=== PATIENT | male | born 1950 | race African-American/Black ===

== ENCOUNTER 2018-03-27 20:27 | Observation (INO) | payer MEDICARE ==
[2018-03-27 20:56] LABS: #Eosinphils 0.1 thou/uL (0.0-0.7); #Lymphocytes 1.7 thou/uL (1.20-3.40); #Monocytes 0.4 thou/uL (0.11-0.59); #Neutrophils 5.1 thou/uL (1.40-6.50); %Basophils 0.2 % (0.0-1.0); %Lymphocytes 23.3 % (21.0-51.0); %Neutrophils 70.5 % (42.0-75.0); Hemoglobin 13.8 g/dL (14.0-18.0); Mean Corpuscular HGB CONC 34.7 g/dL (32.0-36.0); Mean Corpuscular Hemoglobin 34.9 pg (27.0-31.0); Mean Platelet Volume 5.8 fL (7.4-10.4); Platelet Count 202 thou/uL (130-400); RBC Distribution Width 12.8 % (11.5-14.5); Red Blood Cell (RBC) Count 3.96 mill/uL (4.70-6.10); White Blood Cell (WBC) Count 7.3 thou/uL (4.8-10.8)
--- NOTE | 2018-03-27 21:17 | RAD ---
PORTABLE AP CHEST X-RAY 03/27/18 HISTORY: Syncope and collapse with vomiting. FINDINGS: The cardiac silhouette and pulmonary vasculature are within normal limits for the portable technique of the study. The lungs are expanded and clear with calcified granuloma seen in the left mid lung zon e. Mild degenerative changes are noted in the thoracic spine. IMPRESSION: No acute cardiopulmonary process. POS: [facility]
[2018-03-27 21:19] LABS: ALT (SGPT) 13 U/L (8-55); AST (SGOT) 15 U/L (5-34); Albumin 3.8 g/dL (3.4-4.8); Alkaline Phosphatase 59 U/L (40-150); Anion Gap 15 mmol/L (10-20); BUN (Urea Nitrogen) 21 mg/dL (8.4-25.7); CK (CPK) 61 U/L (30-200); Calc. Creatinine Clearance 0 mL/min (70-130); Calcium 8.7 mg/dL (7.8-10.44); Carbon Dioxide 23 mmol/L (23-31); Chloride 111 mmol/L (98-107); Estimated GFR-MDRD 52; Globulin 3.1 g/dL (2.4-3.5); Glucose 81 mg/dL (80-115); Potassium 3.6 mmol/L (3.5-5.1); Protein, Total 6.9 g/dL (5.8-8.1); Sodium 145 mmol/L (136-145)
[2018-03-27 21:21] LABS: Troponin I Less than 0.010 ng/mL (< 0.028)
[2018-03-27 23:06] LABS: Bilirubin Negative (Negative); Blood, Urine Negative (Negative); Clarity CLOUDY (Clear); Glucose, Urine (Dipstick) Negative (Negative); Leukocyte Moderate (Negative); Nitrite Negative (Negative); Protein, Urine (Dipstick) 30 mg/dL (Neg-Trace); Specific Gravity, Urine 1.025 (1.002-1.036); Urobilinogen 0.2 mg/dL (0.2-1.0); pH, Urine 5.5 (5.0-9.0)
[2018-03-27 23:10] LABS: Bacteria/HPF None Seen HPF (None Seen); Pathc Cast-AUWi Flag 3.63 (0-2.49); RBC/HPF 0-3 HPF (0-3)
[2018-03-27 23:18] LABS: Trichomonas/HPF 1+ HPF (None Seen)
[2018-03-28 00:35] LABS: Troponin I 0.011 ng/mL (< 0.028)
[2018-03-28] MEDS ORDERED: Acetaminophen 325 MG TAB PO PRN (00:38)
[2018-03-28] MEDS ORDERED: Ondansetron ODT 4 MG TAB SL PRN (00:38)
[2018-03-28] MEDS ORDERED: HYDROcodone/Acetaminophen 5/325 mg Tablet PO PRN ×2 (00:38)
[2018-03-28] MEDS ORDERED: Ondansetron HCl/PF 4 MG/2 ML Vial IVP PRN ×2 (00:38→10:47)
[2018-03-28 03:36] VITALS: BMI 20.3
[2018-03-28 03:49] LABS: Troponin I Less than 0.010 ng/mL (< 0.028)
[2018-03-28] MEDS ORDERED: Aspirin 325 mg Enteric Coated Tablet PO SCH (09:00)
[2018-03-28] MEDS ORDERED: Ondansetron ODT 4 MG TAB PO PRN (10:47)
[2018-03-28] MEDS ORDERED: Acetaminophen 500 MG TAB PO PRN (10:47)
[2018-03-28] MEDS ORDERED: metroNIDAZOLE 500 MG TAB PO SCH (11:00)
[2018-03-28] MEDS: Sodium Chloride 0.9% 1,000 ML IV SCH ×2 (11:11→21:14)
--- NOTE | 2018-03-28 17:32 | HP ---
DATE OF ADMISSION: 03/28/2018 PRIMARY CARE PROVIDER: GLORIA Waterman at the [facility]. CHIEF COMPLAINT: Passing out. HISTORY OF PRESENT ILLNESS: This is a 67-year-old male who presents to [facility] Emergency Department after a brief syncopal episode while playing dominos. The patient state s he was outside with his friends, had one beer, felt dizzy and was somewhat nauseous and passed out while sitting in a chair. His friends state he was out for a few seconds, coming to with noting vomi t on his shirt. The patient denied any unilateral symptoms, amnesia difficulty with speech, visual d isturbance, chest pain or shortness of breath. The patient states he had a passing out episode appro ximately 6 years prior to this evaluation after sustaining a myocardial infarction. The patient stat es he had chest pain at that time, but ignored the symptoms for several days, eventually passing out and being diagnosed with a myocardial infarction, subsequently undergoing cardiac stent placement. T patient again denied any specific chest pain, shortness of breath, decreased activity level, fever , chills, cough or congestion. The patient does state he smokes up to a half a pack of cigarettes da arley and drinks 1-2 beers per week. The patient denied any sick contact exposures, recent travel hist ory or unilateral leg swelling. The patient states he recently was changed on his cholesterol medica tion, but otherwise has been taking his chronic blood pressure medicines consistently. In the emerge ncy room, the patient underwent general evaluation including chest imaging showing no acute infiltrat e. The patient was noted hypotensive initially with blood pressures in the 80s/50s. The patient rec eived intravenous normal saline x1 liter as well as aspirin 243 mg. The patient was transferred to [facility] observation unit for further evaluation. PAST MEDICAL HISTORY: 1. Hypertension. 2. Coronary artery disease. 3. Tobacco abuse. 4. Hyperlipidemia. 5. History of myocardial infarction in 2011. PAST SURGICAL HISTORY: Status post cardiac stent placement x4. CURRENT MEDICATIONS: 1. Amlodipine 5 mg p.o. daily. 2. Lipitor 40 mg p.o. at bedtime. 3. Lisinopril 40 mg p.o. daily. 4. Enteric-coated aspirin, dose unknown. ALLERGIES: No known drug allergies. FAMILY HISTORY: Reviewed and negative per patient report. SOCIAL HISTORY: The patient resides in [place], [place] living with a cousin. Functional of all activ ities of daily living. Single. Smokes up to half a pack of cigarettes daily. 1-2 beers per week. No illicit drug use. REVIEW OF SYSTEMS: A 10-pound weight loss in the last 2-3 months. The following complete review of systems was negative, unless otherwise mentioned in the HPI or below: Constitutional: Weight loss o r gain, ability to conduct usual activities. Skin: Rash, itching. Eyes: Double vision, pain. ENT /Mouth: Nose bleeding, neck stiffness, pain, tenderness. Cardiovascular: Palpitations, dyspnea on exertion, orthopnea. Respiratory: Shortness of breath, wheezing, cough, hemoptysis, fever or night sweats. Gastrointestinal: Poor appetite, abdominal pain, heartburn, nausea, vomiting, constipation, or diarrhea. Genitourinary: Urgency, frequency, dysuria, nocturia. Musculoskeletal: Pain, swelli ng. Neurologic/Psychiatric: Anxiety, depression. Allergy/Immunologic: Skin rash, bleeding tendenc y. Otherwise negative except as stated per HPI. PHYSICAL EXAMINATION: VITAL SIGNS: Currently, blood pressure 102/58, pulse 68, respiratory rate 20, temperature 97.2 degr ees Fahrenheit, O2 saturation 98% on room air. GENERAL APPEARANCE: This is a 67-year-old male, alert and oriented x3, pleasant, sm iling, in no acute distress. HEENT: Pupils are equal, round and reactive to light and accommodation. Extraocular muscles are int act. No scleral icterus. No conjunctival injection. Nares patent. OP is clear. Teeth in poor rep air. NECK: Supple. No cervical adenopathy, no thyromegaly, no carotid bruits, no JVD appreciated. Cervi baudilio spine with full active and passive range of motion. No meningeal signs appreciated. CHEST: Lungs are clear to auscultation bilaterally. CARDIOVASCULAR: S1, S2 without noted murmur, rub or gallop. ABDOMEN: Rounded, soft, nontender, nondistended. Bowel sounds are positive in all four quadrants. There is no hepatosplenomegaly, no abdominal bruits, no rebound or guarding appreciated. EXTREMITIES: Warm and dry with fair turgor. No clubbing, cyanosis or asymmetric edema appreciated. Pulses are palpable distally at the dorsalis pedis, posterior tibial and popliteal arteries bilatera lly. Capillary refill less than 2 seconds. NEUROLOGIC: Cranial nerves II-XII are grossly intact. No focal or lateralizing signs appreciated. PERTINENT LABORATORY AND X-RAY FINDINGS: Sodium 145, potassium 3.6, chloride 111, CO2 of 23, BUN 21, creatinine 1.36. Estimated GFR 52, glucose 81, calcium 8.7. LFTs within normal limits. Troponin I negative x3. BNP 62. CBC showed a white blood cell count of 7.3, hemoglobin 14, hematocrit 40, MCV 100, platelet count 202,000 with normal differential. Urinalysis showed moderate leukocyte esterase with greater than 50 to too numerous to count WBCs per high powered field, 21-50 hyalin casts. Posi tive Trichomonas species. Portable chest x-ray dated 03/27/2018 by my interpretation shows hyperinfl ation in bilateral lung solares without acute process. EKG dated 03/27/2018 by my interpretation show s sinus mechanism with heart rates in the 70s. Attenuated R waves noted in the precordial leads. No rmal axis. Q-waves noted in the inferior leads. ASSESSMENT AND PLAN: 1. Syncopal episode. The patient will be placed in observation status. Exact etiology unclear; how ever, suspicion is for hypovolemia, hypotension and heat exposure. We will continue intravenous norm al saline after assessment of orthostatic vital signs. Hold all antihypertensive medications. Encou rage increased free water intake orally. Continue telemetry monitoring and rule out arrhythmia. Conchis ck TSH level in the a.m. 2. Dehydration. We will continue intravenous fluids with normal saline at 100 mL per hour. 3. Acute kidney injury. Suspected. Continue IV fluids as outlined previously. Avoid nephrotoxic a gents and contrast media. Hold lisinopril. Repeat creatinine in the a.m. 4. Hypotension. Suspect hypovolemia and iatrogenic. Continue IV fluids as outlined previously. Ho ld all antihypertensive medications. 5. Coronary artery disease. Chronic and stable. Continue aspirin 325 mg daily. Check fasting lipi d profile in the a.m. 6. Trichomonas urethritis. Treat with Flagyl 2 g p.o. x1 dose. 7. Hyperlipidemia. Check fasting lipid profile in the a.m. Continue Lipitor 40 mg p.o. at bedtime. 8. Tobacco use. Offer smoking cessation resources prior to discharge. 9. Prophylaxis. Sequential compression devices while in bed. Pepcid 20 mg p.o. b.i.d. 10. Code status is full. Surrogate medical decision maker is the patient's daughter.
[2018-03-28] MEDS: Famotidine 20 MG TAB PO SCH (20:50)
[2018-03-28] MEDS ORDERED: Atorvastatin Calcium 40 MG TAB PO SCH (21:00)
[2018-03-29 04:47] LABS: Anion Gap 9 mmol/L (10-20); BUN (Urea Nitrogen) 12 mg/dL (8.4-25.7); Calc. Creatinine Clearance 75 mL/min (70-130); Calcium 8.4 mg/dL (7.8-10.44); Carbon Dioxide 24 mmol/L (23-31); Cardiac Risk 2.5 (Less than 4.5); Chloride 110 mmol/L (98-107); Cholesterol 91 mg/dl (< 200 Desired); Estimated GFR-MDRD Greater than 90; Glucose 97 mg/dL (80-115); HDL Cholesterol 36 mg/dL (>60 Neg Risk); LDL Cholesterol, Calculated 46 mg/dL; Potassium 3.9 mmol/L (3.5-5.1); Sodium 139 mmol/L (136-145); Triglycerides 43 mg/dL (Less than 150)
[2018-03-29 04:58] LABS: Eosinophils 2 % (0-10); Hemoglobin 12.6 g/dL (14.0-18.0); Lymphocytes 34 % (21-51); MDiff Complete? YES; Mean Corpuscular HGB CONC 33.5 g/dL (32.0-36.0); Mean Corpuscular Hemoglobin 33.4 pg (27.0-31.0); Mean Corpuscular Volume 99.8 fL (78.0-98.0); Mean Platelet Volume 5.7 fL (7.4-10.4); Monocytes 5 % (0-10); Neutrophil 59 % (42-75); PLT Morphology Comment Appears Adequate; Platelet Count 197 thou/uL (130-400); RBC Distribution Width 12.7 % (11.5-14.5); Red Blood Cell (RBC) Count 3.76 mill/uL (4.70-6.10); White Blood Cell (WBC) Count 5.7 thou/uL (4.8-10.8)
[2018-03-29] MEDS: Sodium Chloride 0.9% 1,000 ML IV SCH (07:20)
[2018-03-29] MEDS: Famotidine 20 MG TAB PO SCH (07:22)
[2018-03-29 08:08] VITALS: TEMP 97.8
[2018-03-29] MEDS ORDERED: Aspirin 325 mg Enteric Coated Tablet PO SCH (09:00)
[2018-03-29 12:05] VITALS: BP 139/81
--- NOTE | 2018-03-29 18:04 | DIS ---
DATE OF ADMISSION: 03/28/2018 DATE OF DISCHARGE: 03/29/2018 DISCHARGE DIAGNOSES: 1. Syncopal episode likely due to dehydration and hypovolemia. 2. Dehydration, resolved. 3. Acute kidney injury, resolved. 4. Hypotension, iatrogenic and secondary to hypovolemia, improved. 5. Coronary artery disease, chronic and stable. 6. Trichomonas urethritis. 7. Hyperlipidemia. 8. Tobacco abuse. CONSULTATIONS: None. PERTINENT LABORATORY AND X-RAY FINDINGS: Creatinine ranged between 0.79 to 1.36. Estimated GFR rang ed between 52 to greater than 90. Total cholesterol 91, triglycerides 43, HDL 36, LDL 46. TSH 1.15. Troponin I negative x3. CBC showed a hemoglobin ranging between 12.6 to 13.8. Urine culture dated 03/27/2018 showed 25,000 to 50,000 colonies of beta-hemolytic streptococcus. Urinalysis is positive for 1+ Trichomonas species. Portable chest x-ray dated 03/27/2018 showed no acute cardiopulmonary p rocess. HOSPITAL COURSE: The patient was observed on the telemetry unit after presenting status post brief s yncopal episode. The patient was noted with hypotension and clinically dehydrated with associated ac [place] kidney injury. The patient received IV fluids throughout the hospital course and was held on his regular antihypertensive regimen. Metabolic workup was essentially unremarkable except for elevated creatinine, as stated previously, improving with IV fluid hydration. The patient was treated for mi ld urethritis with Trichomonas species on screening urinalysis and urine culture showing a low popula tion of beta-hemolytic Streptococcus species. The patient received Flagyl 2 grams x1 dose and transi tioned to Keflex 500 mg b.i.d. to complete a 3-day course after discharge. Overall, the patient jarod ined clinically stable with telemetry monitoring showing sinus mechanism without acute arrhythmia or dysrhythmia. I have examined the patient at the time of discharge and discussed followup instruction s. The patient verbalized understanding and agreement, ready for discharge on 03/29/2018. DISCHARGE MEDICATIONS: 1. Amlodipine 5 mg one tablet p.o. daily. 2. Lipitor 40 mg p.o. at bedtime. 3. Keflex 500 mg p.o. b.i.d. x3 days. 4. Lisinopril 20 mg p.o. daily. FOLLOWUP: The patient will follow up with his primary care provider, Jaky Sullivan at the [facility] within 5-7 days. CONDITION ON DISCHARGE: Stable. ACTIVITY: Ad chelle. DIET: Heart healthy. CODE STATUS: FULL. DISPOSITION: Home, 03/29/2018.
--- NOTE | 2018-04-02 13:25 | EKG ---
Test Reason : Blood Pressure : / mmHG Vent. Rate : 075 BPM Atrial Rate : 075 BPM P-R Int : 154 ms QRS Dur : 082 ms QT Int : 398 ms P-R-T Axes : 068 053 047 degrees QTc Int : 444 ms Normal sinus rhythm Cannot rule out Anterior infarct , age undetermined No STEMI Abnormal ECG Confirmed by LILO DOVER M.D. ([id number]), news copy editor YIN RICHEY ([id number]) on 04/02/2018 1:24:50 PM Referred By: Confirmed By:LILO DOVER M.D.
== END 2018-03-29 12:25 | disposition home or self-care (01) ==
LOC: ERS 20:27 → 2SW 03-28 00:02
PROVIDERS: ADMIT Internal Medicine; ATTEND Internal Medicine
DX: R55 Syncope and collapse (principal); E86.0 Dehydration; N17.9 Acute kidney failure, unspecified; E86.1 Hypovolemia; I95.89 Other hypotension; I25.2 Old myocardial infarction; A59.03 Trichomonal cystitis and urethritis; E78.5 Hyperlipidemia, unspecified; F17.210 Nicotine dependence, cigarettes, uncomplicated; Z79.82 Long term (current) use of aspirin; Z79.899 Other long term (current) drug therapy; Z95.5 Presence of coronary angioplasty implant and graft
CPT/HCPCS: 71045; 80048; 80053; 80061; 82550; 82553; 83880; 84443; 84484 ×2; 85007; 85025; 85027; 87086; 93005; 94760; 96360; 96361 ×2; 99285; 99406; G0378 ×2; 36415; 81003; 81015; A4216

== ENCOUNTER 2019-09-28 13:49 | Observation (INO) | payer MEDICAID, MEDICARE ==
[2019-09-28 14:21] LABS: #Monocytes 0.6 thou/uL (0.11-0.59); #Neutrophils 3.3 thou/uL (1.40-6.50); %Basophils 0.8 % (0.0-1.0); %Eosinophils 0.7 % (0.0-10.0); %Lymphocytes 20.6 % (21.0-51.0); %Neutrophils 66.9 % (42.0-75.0); Hemoglobin 11.9 g/dL (14.0-18.0); Mean Corpuscular HGB CONC 34.2 g/dL (32.0-36.0); Mean Corpuscular Hemoglobin 34.2 pg (27.0-31.0); Mean Platelet Volume 6.3 fL (7.4-10.4); Platelet Count 230 thou/uL (130-400); RBC Distribution Width 13.2 % (11.5-14.5); Red Blood Cell (RBC) Count 3.48 mill/uL (4.70-6.10)
--- NOTE | 2019-09-28 14:42 | RAD ---
Chest 2 views HISTORY: Productive cough. COMPARISON: 03/27/2018. FINDINGS: Cardiac silhouette and pulmonary vasculature are unremarkable. Mediastinum is midline. No c onfluent airspace consolidation, pneumothorax, or pleural fluid. Lungs are slightly hyperinflated with increased retrosternal airspace. Minimal degenerative changes thoracic spine. IMPRESSION: Mild pulmonary hyperinflation. No active cardiopulmonary abnormalities are demonstrated.
[2019-09-28 14:45] LABS: ALT (SGPT) 79 U/L (8-55); AST (SGOT) 46 U/L (5-34); Albumin 3.2 g/dL (3.4-4.8); Alkaline Phosphatase 56 U/L (40-110); Anion Gap 13 mmol/L (10-20); BUN (Urea Nitrogen) 9 mg/dL (8.4-25.7); Bilirubin, Total 0.6 mg/dL (0.2-1.2); Calc. Creatinine Clearance 0 mL/min (70-130); Carbon Dioxide 27 mmol/L (23-31); Chloride 105 mmol/L (98-107); Estimated GFR-MDRD Greater than 90; Globulin 2.7 g/dL (2.4-3.5); Glucose 105 mg/dL (80-115); Potassium 3.2 mmol/L (3.5-5.1); Protein, Total 5.9 g/dL (5.8-8.1); Sodium 142 mmol/L (136-145)
[2019-09-28] MEDS ORDERED: Albuterol Sulfate 2.5 mg/0.5 ml Neb ONE ×2 (14:49→15:21)
[2019-09-28] MEDS ORDERED: predniSONE 20 MG TAB ONE (15:03)
--- NOTE | 2019-09-28 16:18 | PDOC.FPRHP ---
- History of Present Illness Chief Complaint: SOB with exertion History of Present Illness: 68YOM with a PMH significant for CAD s/p stent placement, COPD, HTN & HLD who presented to the ED with a CC of progressively worsening SOB with exertion over the last few days. Patient reports he was in his usual state of health until ~3 weeks ago when he started having similar symptoms & was admitted to the hospital in [place], [place] where he was diagnosed with a COPD exacerbation. States the symptoms returned "a couple of days ago" so he decided to come to the ED for evaluation. Reports a persistent cough productive of green sputum. Denies any hemoptysis, fever/chills, N/V/D or recent sick contacts. Denies any unintentional weight loss but does reports decreased PO intake. Did not get his flu shot this year. ED Course: Duonebs x2 & IV steroids - Allergies/Adverse Reactions Allergies Allergy/AdvReac Type Severity Reaction Status Date / Time No Known Allergies Allergy Verified 03/28/18 02:55 - Home Medications Medication Instructions Recorded Confirmed Type Amlodipine [Norvasc] 5 mg PO DAILY 03/28/18 09/28/19 History Lisinopril 20 mg PO DAILY #0 03/29/18 09/28/19 Rx - History PMHx: CAD s/p stent placement x4, HTN, HLD, COPD (no formal diagnosis) PSHx: Stent placement in 2010 FHx: Brother: from [place] in 1993 at age <50 Social: Former smoker, quit ~1 month ago. 50 pack year smoking history. Nothing to drink in a few months. No drug use. Lives in a house with his cousin and has HH stop by 1x/week. - Review of Systems General: reports: weight/appetite/sleep changes. denies: fever/chills Respiratory: reports: cough, shortness of breath, exercise intolerance Cardiovascular: denies: chest pain, orthopnea Gastrointestinal: denies: nausea, vomiting, diarrhea, abdominal pain Skin: denies: rashes, itching Neurological: denies: numbness, weakness - Vital signs BP: [115/74] HR: [107] RR: [22] Tmax: [100.2F] Pox: [99]% on [RA] Wt: [58.97kg ] - Physical Exam Constitutional: NAD, awake, alert and oriented, well developed HEENT: normocephalic and atraumatic, grossly normal vision, grossly normal hearing, MMM, other (poor dentition) Neck: supple, FROM Heart: normal S1/S2, no murmurs/rubs/gallops, pulses present, no edema, other ( tachycardic) Lungs: no retractions, other (diffuse end-expiratory wheezing noted throughout w / prolonged expiratory phase) Abdomen: soft, non-tender, bowel sounds present Musculoskeletal: normal structure, ROM grossly normal Neurological: no focal deficit, CN II-XII intact (grossly) Skin: no rash/lesions, no jaundice Heme/Lymphatic: no unusual bruising or bleeding, no purpura, no petechia, no LAD Psychiatric: normal mood and affect, good judgment and insight, intact recent and remote memory FMR H&P: Results - Labs Result Diagrams: 09/28/19 14:13 09/28/19 14:13 Lab results: WBC 5.0 thou/uL (4.8-10.8) 09/28/19 14:13 Hgb 11.9 g/dL (14.0-18.0) L 09/28/19 14:13 Hct 34.9 % (42.0-52.0) L 09/28/19 14:13 MCV 100.0 fL (78.0-98.0) H 09/28/19 14:13 Plt Count 230 thou/uL (130-400) 09/28/19 14:13 Neutrophils % 66.9 % (42.0-75.0) 09/28/19 14:13 Sodium 142 mmol/L (136-145) 09/28/19 14:13 Potassium 3.2 mmol/L (3.5-5.1) L 09/28/19 14:13 Chloride 105 mmol/L (98-107) 09/28/19 14:13 Carbon Dioxide 27 mmol/L (23-31) 09/28/19 14:13 BUN 9 mg/dL (8.4-25.7) 09/28/19 14:13 Creatinine 0.80 mg/dL (0.7-1.3) 09/28/19 14:13 Glucose 105 mg/dL (80-115) 09/28/19 14:13 Calcium 8.0 mg/dL (7.8-10.44) 09/28/19 14:13 Total Bilirubin 0.6 mg/dL (0.2-1.2) 09/28/19 14:13 AST 46 U/L (5-34) H 09/28/19 14:13 ALT 79 U/L (8-55) H 09/28/19 14:13 Alkaline Phosphatase 56 U/L (40-110) 09/28/19 14:13 Serum Total Protein 5.9 g/dL (5.8-8.1) 09/28/19 14:13 Albumin 3.2 g/dL (3.4-4.8) L 09/28/19 14:13 - Radiology Interpretation Chest x-ray Status: report reviewed by me (Mild pulmonary hyperinflation; no acute cardiopulmonary process) FMR H&P: A/P - Problem List (1) Acute exacerbation of chronic obstructive pulmonary disease Current Visit: Yes Status: Acute Code(s): J44.1 - CHRONIC OBSTRUCTIVE PULMONARY DISEASE W (ACUTE) EXACERBATION (2) Hypokalemia Current Visit: Yes Status: Acute Code(s): E87.6 - HYPOKALEMIA (3) HLD (hyperlipidemia) Current Visit: Yes Status: Acute Code(s): E78.5 - HYPERLIPIDEMIA, UNSPECIFIED (4) HTN (hypertension) Current Visit: Yes Status: Acute Code(s): I10 - ESSENTIAL (PRIMARY) HYPERTENSION (5) Macrocytic anemia Current Visit: Yes Status: Acute Code(s): D53.9 - NUTRITIONAL ANEMIA, UNSPECIFIED - Plan Patient is a 68M with PMHx of COPD, HTN, HLD that is admitted for: #Acute on chronic COPD exacerbation -s/p 2 rounds duonebs and 60mg prednisone in ED -CXR: mild pulmonary hyperinflation without acute cardiopulmonary process, no infiltrates -sputum cultures -will continue 40mg PO prednisone qd -will treat with rocephin and azithromycin -supplemental O2 to keep O2 sats >88% -scheduled duonebs q6h with albuterol q2h prn -procal pending #Hypokalemia -will replete with 40mg po KCl -will continue to monitor and replete as necessary #Macrocytic Anemia -B12, folate, and iron studies pending -will continue to follow #HTN -continue home meds #HLD -continue home meds DVT ppx: lovenox Diet: HH Dispo: medical obs for duonebs, abx, steroids, and respiratory monitoring Code: Full PCP: OOT FMR H&P: Upper Level - Pertinent history 68YOM with a PMH significant for CAD s/p stent placement, COPD, HTN & HLD who presented to the ED with a CC of progressively worsening SOB with exertion over the last few days. Reports he was in his usual state of health until ~3 weeks ago when he started having similar symptoms. Was admitted to the hospital in [place], [place] at that time for a COPD exacerbation & stayed for 5 days. States the symptoms returned "a couple of days ago" so he came to the ED for evaluation. Reports a persistent cough productive of green sputum. Denies any hemoptysis, fever/chills, N/V/D or recent sick contacts. Denies any unintentional weight loss but does reports decreased PO intake. Did not get his flu shot this year. See environmental health and safety intern note for more details of PMH. - Pertinent findings Labs/Imaging: WBC: 5.0 K: 3.2 CXR: hyperinflation but no infiltrates or effusions Gen: no fever, chills, or sweats; + decreased appetite Neuro: no numbness/tingling, no weakness Eyes: no visual changes ENT: no sore throat, no runny nose Resp: + cough & SOB Card: denies chest pain, no orthopnea GI: no N/V/D, no abdominal pain : no dysuria, no hematuria MSK: no myalgias, no joint pain/stiffness Heme: no easy bruising/bleeding, no blood thinners Skin: no rash, no erythema Vitals: T:100.2F R: 20 BP: 120/80 P:80 Sat:99% on RA Wt: 58.9 kg PHYSICAL EXAMINATION: General: NAD, alert and oriented x3 HEENT: normal sclera, oropharynx without erythema or exudate; poor dentition Neck: Supple. Full ROM. Heart/Cardiovascular System: RRR, Cap refill < 3 seconds, no rub, no murmur, no edema Lungs/Respiratory System: No increased work of breathing. Room air. Diffuse expiratory wheezing heard throughout with prolonged expiratory phase Abdomen/Gastro-Intestinal System: soft w/ no abdominal tenderness, normal bowel sounds; mild distension Extremities: Warm extremities. No cyanosis or edema. Neuro: No gross deficits appreciated. CN 2-12 grossly intact Psychiatry: Awake, Alert and cooperative with exam Skin: No lesions, rashes, or ulcers Musculoskeletal: Full ROM - Plan Date/Time: 09/28/19 2449 I, Yun De Leon, have evaluated this patient and agree with findings/plan as outlined by environmental health and safety intern resident. Pertinent changes/additions are listed here. A/P: #Acute on chronic COPD exacerbation -CXR negative for infiltrate & flu swab pending. -Will start on Duonebs WANG Q6H & Q2Hr albuterol with supplemental O2 PRN to maintain sats at 92%. -Will start on azithromycin & rocephin & transition to PO steroids to be continued for at least a 5 day course. -Needs outpatient pulm follow-up & testing for formal diagnosis & will start on WANG QD maintenance therapy to prevent such frequent exacerbations. #Hypokalemia -Will replace PO now & recheck in the AM. #Macrocytic anemia -Will check B12 & folate levels. #Transaminitis: - Mildly elevated LFTs. Could be 2/2 NAFLD or possible chronic EtOH use. Warrants an outpatient workup. #HTN -Will resume home meds once reconciled. #HLD -Home meds once reconciled. CAD s/p stent placement: -Home meds once reconciled. ABx: Azithromycin & Rocephin (09/28) Fluids: SL VTE PPX: Lovenox GI PPX: None Code status: FULL CODE Dispo: Admit to medical floor for close observation overnight. Anticipated LOS < 48hrs pending clinical course. Addendum - Attending - Attending Attestation Date/Time: 09/28/19 5088 I personally evaluated the patient and discussed the management with Drs. Carvajal/ I agree with the History, Examination, Assessment and Plan documented above with any addition or exceptions noted below.68 yo AA male with hx CAD recent admit with new DX COPD exacerbation with 50 pack years tobacco use. Patient with marked wheezing throughout lung solares low grade temp productive cough agree with empirical antibiotics attempt obtain sputum for C&S gram stain , nebulizer rx and course steroids. Patient confirms full code status.
[2019-09-28] MEDS ORDERED: Albuterol Sulfate 2.5 mg/3 ml Neb NEB PRN (16:41)
[2019-09-28] MEDS ORDERED: Calcium Carbonate 500 MG ChewTAB PO PRN (16:43)
[2019-09-28] MEDS ORDERED: Acetaminophen 325 MG TAB PO PRN (16:43)
[2019-09-28] MEDS ORDERED: Ondansetron ODT 4 MG TAB PO PRN (16:43)
[2019-09-28] MEDS ORDERED: Potassium Chloride 20 MEQ TAB PO SCH (17:45)
[2019-09-28 18:07] VITALS: BMI 20.8
[2019-09-28] MEDS ORDERED: Azithromycin 500 MG in Sodium Chloride 0.9% 250 ML 250 ML IVPB SCH (19:00)
[2019-09-28] MEDS ORDERED: cefTRIAXone\\ROCEPHIN 1 GM in Sodium Chloride 0.9% 100 ML IVPB SCH (20:00)
[2019-09-29 04:36] LABS: #Lymphocytes 0.7 thou/uL (1.20-3.40); #Monocytes 0.4 thou/uL (0.11-0.59); #Neutrophils 3.7 thou/uL (1.40-6.50); %Basophils 0.3 % (0.0-1.0); %Eosinophils 0.1 % (0.0-10.0); %Lymphocytes 14.2 % (21.0-51.0); %Monocytes 8.5 % (0.0-10.0); %Neutrophils 76.9 % (42.0-75.0); Hemoglobin 10.7 g/dL (14.0-18.0); Mean Corpuscular HGB CONC 32.7 g/dL (32.0-36.0); Mean Corpuscular Hemoglobin 32.5 pg (27.0-31.0); Mean Corpuscular Volume 99.4 fL (78.0-98.0); Mean Platelet Volume 6.7 fL (7.4-10.4); Platelet Count 241 thou/uL (130-400); RBC Distribution Width 13.1 % (11.5-14.5); White Blood Cell (WBC) Count 4.8 thou/uL (4.8-10.8)
[2019-09-29 04:59] LABS: Anion Gap 13 mmol/L (10-20); BUN (Urea Nitrogen) 10 mg/dL (8.4-25.7); Calc. Creatinine Clearance 71 mL/min (70-130); Calcium 8.8 mg/dL (7.8-10.44); Carbon Dioxide 27 mmol/L (23-31); Chloride 105 mmol/L (98-107); Estimated GFR-MDRD Greater than 90; Glucose 227 mg/dL (80-115); Iron 46 ug/dL (65-175); Iron Binding Capacity, Total 145 mcg/dL (261-462); Potassium 4.1 mmol/L (3.5-5.1); Sodium 141 mmol/L (136-145); Transferrin, Serum 116 mg/dL (163-344)
--- NOTE | 2019-09-29 05:49 | PDOC.FM ---
- Subjective Subjective: Patient doing well. Reports that his breathing has improved. Discussed that Nieves is on his home meds; patient states that he hasn't had the opportunity to pick it up from the pharmacy yet - Objective Vital Signs & Weight: Vital Signs (12 hours) Temp Pulse Resp BP BP Pulse Ox 09/29/19 04:20 97.6 F 91 18 100/66 97 09/29/19 00:56 105 H 20 97/65 09/28/19 23:20 98.8 F 102 H 18 93/60 98 09/28/19 23:12 117 H 18 94 L 09/28/19 18:59 130 H 20 93 L 09/28/19 18:09 98.1 F 118 H 21 H 124/64 91 L Weight Weight 60.328 kg I&O: 09/27/19 09/28/19 09/29/19 06:59 06:59 06:59 Intake Total 240 Output Total 500 Balance -260 Result Diagrams: 09/29/19 04:19 09/29/19 04:19 Phys Exam - Physical Examination Constitutional: NAD HEENT: moist MMs poor dentition Neck: supple, full ROM Respiratory: clear to auscultation bilateral no wheezing appreciated throughout Cardiovascular: RRR, no significant murmur Gastrointestinal: soft, non-tender Musculoskeletal: no edema, pulses present Neurological: non-focal, moves all 4 limbs Psychiatric: normal affect, A&O x 3 Skin: no rash, normal turgor Dx/Plan (1) Acute exacerbation of chronic obstructive pulmonary disease Code(s): J44.1 - CHRONIC OBSTRUCTIVE PULMONARY DISEASE W (ACUTE) EXACERBATION Status: Acute (2) Hypokalemia Code(s): E87.6 - HYPOKALEMIA Status: Acute (3) HLD (hyperlipidemia) Code(s): E78.5 - HYPERLIPIDEMIA, UNSPECIFIED Status: Acute (4) HTN (hypertension) Code(s): I10 - ESSENTIAL (PRIMARY) HYPERTENSION Status: Acute (5) Macrocytic anemia Code(s): D53.9 - NUTRITIONAL ANEMIA, UNSPECIFIED Status: Acute - Plan Plan: Patient is a 68M with PMHx of COPD, HTN, HLD that is admitted for: #Acute on chronic COPD exacerbation -s/p 2 rounds duonebs and 60mg prednisone in ED -CXR: mild pulmonary hyperinflation without acute cardiopulmonary process, no infiltrates -continue 40mg PO prednisone qd -continue rocephin and azithromycin -supplemental O2 to keep O2 sats >88%; patient's sats ranged 94-98% on RA overnight -scheduled duonebs q6h with albuterol q2h prn -patient's home meds: breo, combivent though patient has not had the opportunity to hop picker his Breo yet -will start Breo today while in the hospital -procal 0.09, neg #Hypokalemia, resolved -potassium 4.1 this am -will continue to monitor and replete as necessary #Macrocytic Anemia - iron studies: iron 46L, TIBC 145L, Transferrin 116L, Ferritin 4296 -B12 406 wnl -RBC folate pending -will continue to follow #Elevated Transaminases -AST 46, ALT 79 -patient denies drinking hx -will get RUQ U/S #HTN -continue home meds #HLD -continue home meds DVT ppx: lovenox Diet: Dispo: medical obs for duonebs, abx, steroids, and respiratory monitoring. RUQ US today to assess liver; possible d/c later today or tomorrow pending on how patient's breathing does throughout today Code: Full PCP: OOT Addendum - Attending - Attending Attestation Date/Time: 09/29/19 1210 I personally evaluated the patient and discussed the management with Dr. Carvajal I agree with the History, Examination, Assessment and Plan documented above with any addition or exceptions noted below.Patient significantly improved since admission ok dismissal with continued evaluation mildly elevated LFTs and anemia as outpt. Discussed barriers to care patient aware need for medications.
[2019-09-29 06:14] LABS: Ferritin 4296.14 ng/mL (22-322)
[2019-09-29] MEDS ORDERED: Mometasone/Formoterol 120 PUFF INHALER INH SCH (06:30)
[2019-09-29 08:05] VITALS: TEMP 98.6
[2019-09-29] MEDS ORDERED: Azithromycin 250 MG TAB PO SCH (09:00)
[2019-09-29] MEDS ORDERED: Non-Formulary Item 1 EACH (Lisinopril [Lisinopril] 20 MG) PO SCH (09:00)
[2019-09-29] MEDS ORDERED: Amlodipine 5 MG TAB PO SCH (09:00)
[2019-09-29] MEDS ORDERED: Enoxaparin Sodium 40 MG/0.4 ML SYRINGE SC SCH (09:00)
[2019-09-29] MEDS ORDERED: predniSONE 20 MG TAB PO SCH (09:00)
--- NOTE | 2019-09-29 09:17 | ULT ---
Exam: Right upper quadrant ultrasound: HISTORY: Elevated transaminases COMPARISON: None FINDINGS: Liver: Increased in echogenicity suggesting fatty infiltration. Gallbladder: No evidence of gallbladder calculi, gallbladder wall thickening, or pericholecystic flui d. Common bile duct: The common duct is normal in caliber measuring 0.3 cm in diameter. Pancreas: Limited visualized portions of the pancreas demonstrate a normal sonographic appearance. Right kidney: Right kidney demonstrates a normal sonographic appearance. The right kidney measures 9 cm in length. IVC: The visualized IVC demonstrates a normal sonographic appearance. Aorta: Normal in caliber. IMPRESSION: Right upper quadrant ultrasound is within normal limits, and no gallbladder calculi are seen.
[2019-09-29 11:00] LABS: HBCM Index 0.04 S/CO (0-0.79); HBSAB Concentration 1.43 mIU/mL; HBSAg Index 0.35 S/CO (0-0.99); HIV (1/2) Antibody/Antigen Non-Reactive (NonReactive); HIV 1/2 INDEX 0.11 S/CO (<1.00); Hep A IgM AB Non-Reactive (NonReactive); Hep A IgM S/CO 0.08 S/CO (0-0.79); Hep B Surf AB Non-Reactive (NonReactive); Hep B Surf Ag Non-Reactive S/CO (NonReactive); Hepatitis B Core IgM Abs Non-Reactive (NonReactive)
[2019-09-29 11:03] LABS: Syphilis Antibody Index 7.43 S/CO (<1.00 Non-Reactive)
[2019-09-29 11:42] LABS: Syphilis Antibody INDETERMINATE (Nonreactive)
[2019-09-29 11:55] VITALS: BP 111/72
[2019-09-29] MEDS ORDERED: Lisinopril 20 MG TAB PO SCH (21:00)
[2019-09-29] MEDS ORDERED: Atorvastatin Calcium 40 MG TAB PO SCH (21:00)
--- NOTE | 2019-09-30 11:46 | DIS ---
DATE OF ADMISSION: 09/28/2019 DATE OF DISCHARGE: 09/29/2019 ADMITTING RESIDENT: Evie Carvajal MD ADMITTING ATTENDING: Milton Salgado MD DISCHARGE RESIDENT: Evie Carvajal MD. DISCHARGE ATTENDING: Milton Salgado MD. CONSULTATIONS: None. PROCEDURES: None. IMAGING: Chest x-ray: Mild pulmonary hyperinflation. No active cardiopulmonary abnormalities. PRIMARY DIAGNOSES: 1. Nedwk-mi-zryrewa chronic obstructive pulmonary disease exacerbation. 2. Hypokalemia. 3. Microcytic anemia. 4. Elevated transaminases. SECONDARY DIAGNOSES: 1. Hypertension. 2. Hyperlipidemia. DISCHARGE MEDICATIONS: 1. Azithromycin 250 mg p.o. daily x3 tabs. 2. Prednisolone 40 mg p.o. daily x3 tabs. 3. Lisinopril 20 mg p.o. daily. 4. Atorvastatin 40 mg p.o. at bedtime. 5. Amlodipine 5 mg p.o. daily. 6. Dulera inhaler. DISCONTINUED MEDICATIONS: 1. Albuterol nebulizers. 2. DuoNebs. 3. Potassium chloride. 4. Rocephin. HISTORY OF PRESENT ILLNESS/HOSPITAL COURSE: This patient is a 68-year-old male with a past medical history of COPD, hypertension, hyperlipidemia, CAD status post stent placement who presented to the ED with a chief complaint of progressively worsening shortness of breath with exertion over the last several days. He was previously admitted to the hospital in [place], [place] about 3 weeks ago where he was diagnosed at that time with a COPD exacerbation and symptoms returned, so he decided to come to the ER. Upon evaluation, on chest x-ray, he was found to have hyperinflation of his lungs bilaterally. On physical exam, he was pleasant, cachectic, and tachycardic and he had poor inspiratory effort throughout on his respiratory exam with diffuse end expiratory wheezing in all portions of his lungs bilaterally. He was admitted to the hospital for [id number] COPD exacerbation and started on Rocephin, azithromycin, and prednisone. He was also given DuoNebs and supplemental oxygen p.r.n. He was also found to have hypokalemia and it was repleted with 40 mg of KCl, . He was also found to have a microcytic anemia and so B12, folate and iron studies were all ordered. He was also found to have elevated transaminases, which was further worked up with a hepatitis panel as well as a right upper quadrant ultrasound. The results of these findings suggested anemia of chronic disease. For his microcytic anemia and fatty infiltration of his liver found on the abdominal ultrasound. He was also found to have an indeterminate syphilis antibody with RPR titer, it was nonreactive. Overnight, the patient was able to maintain his oxygen saturation without requiring oxygen and the following day, he felt better. He was evaluated on day of discharge and found to be in stable condition. It was discussed with him the importance of taking up his inhaler, which he had reportedly not picked up at his pharmacy after his last hospitalization. The patient was agreeable with the plan of care. He was instructed on having his albuterol inhaler. DISPOSITION: Stable. DISCHARGE INSTRUCTIONS: 1. Location: To home. 2. Diet: Heart healthy. 3. Activity: As tolerated. 4. Follow up with PCP within 7 days. Job ID: [id number]
[2019-09-30 15:13] LABS: Hematocrit 32.7 % (37.5-51.0); RBC Folate Test Component 875 ng/mL (>498)
== END 2019-09-29 14:17 | disposition home or self-care (01) ==
LOC: ERS 13:49 → 2SW 18:03
PROVIDERS: ADMIT Family Medicine; ATTEND Family Medicine
DX: J44.1 Chronic obstructive pulmonary disease with (acute) exacerbation (principal); E87.6 Hypokalemia; D53.9 Nutritional anemia, unspecified; I10 Essential (primary) hypertension; E78.5 Hyperlipidemia, unspecified; I25.10 Atherosclerotic heart disease of native coronary artery without angina pectoris; R74.0 Nonspecific elevation of levels of transaminase and lactic acid dehydrogenase [LDH]; Z87.891 Personal history of nicotine dependence; Z79.899 Other long term (current) drug therapy; Z95.5 Presence of coronary angioplasty implant and graft
CPT/HCPCS: 71046; 76705; 80048; 80053; 82607; 82728; 82747; 83540; 83880; 84145; 85014; 85025 ×2; 86593; 86705; 86706; 86708; 86709; 86780; 87340; 87389; 87521; 87804 ×2; 94640 ×4; 94644; 94760; 96372; 96374; 96375; 99285; G0378 ×3; 36415; 83550; 84466; J0456; J0696; J1650; J3490; J7050; J7512; J7611; J7620